=== PATIENT | female | born 1945 | race Caucasian/White ===

== ENCOUNTER 2020-07-09 07:03 | Day surgery (SDC) | payer MEDICARE ==
[2020-07-05 13:30] VITALS: BMI 21.9
[2020-07-09 10:02] VITALS: BP 111/67; TEMP 98.5
[2020-07-09] MEDS ORDERED: Iopamidol-M 300 61% 15 ML VIAL ONE (10:52)
== END 2020-07-09 10:30 | disposition home or self-care (01) ==
LOC: RAD 07:03
PROVIDERS: ATTEND Neurological Surgery
PROC: B02B1ZZ Computerized Tomography (CT Scan) of Spinal Cord using Low Osmolar Contrast (ICD-10-PCS; principal; 2020-07-09)
DX: M51.36 Other intervertebral disc degeneration, lumbar region (principal); M43.16 Spondylolisthesis, lumbar region; M47.812 Spondylosis without myelopathy or radiculopathy, cervical region; M43.12 Spondylolisthesis, cervical region; M50.321 Other cervical disc degeneration at C4-C5 level; M48.02 Spinal stenosis, cervical region; M19.90 Unspecified osteoarthritis, unspecified site; I10 Essential (primary) hypertension; I67.1 Cerebral aneurysm, nonruptured; Z79.899 Other long term (current) drug therapy; Z98.1 Arthrodesis status
CPT/HCPCS: 62305; 72050; 72100; 72126; 72132; Q9967

== ENCOUNTER 2021-05-02 12:56 | Outpatient (CLI) | payer MEDICARE | END 2021-05-02 12:57 | disposition home or self-care (01) | LOC: BICCT 12:56 | PROVIDERS: ATTEND Internal Medicine | DX: R91.8 Other nonspecific abnormal finding of lung field (principal); I77.810 Thoracic aortic ectasia | CPT/HCPCS: 71250 ==

== ENCOUNTER 2022-01-16 06:55 | Outpatient (CLI) | payer MEDICARE | END 2022-01-16 06:56 | disposition home or self-care (01) | LOC: BICULT 06:55 | PROVIDERS: ATTEND Internal Medicine | DX: E04.2 Nontoxic multinodular goiter (principal) | CPT/HCPCS: 76536 ==

== ENCOUNTER 2022-02-05 13:10 | Outpatient (CLI) | payer MEDICARE | END 2022-02-05 13:11 | disposition home or self-care (01) | LOC: BICRAD 13:10 | PROVIDERS: ATTEND Internal Medicine | DX: R05.9 Cough, unspecified (principal) | CPT/HCPCS: 71046 ==

== ENCOUNTER 2023-01-02 12:36 | Outpatient (CLI) | payer MEDICARE | END 2023-01-02 12:37 | disposition home or self-care (01) | LOC: CT 12:36 | PROVIDERS: ATTEND Internal Medicine | DX: R91.1 Solitary pulmonary nodule (principal); R91.8 Other nonspecific abnormal finding of lung field | CPT/HCPCS: 36415; 71250; 82607; 82747; 83735; 84207; 84484; 85014 ==

== ENCOUNTER 2023-06-04 07:31 | Outpatient (CLI) | payer MEDICARE ==
[2023-06-04] MEDS ORDERED: Iopamidol 370 76% 100 ML VIAL ONE (12:16)
== END 2023-06-04 07:32 | disposition home or self-care (01) ==
LOC: CT 07:31
PROVIDERS: ATTEND Physician Assistant Medical
DX: R19.7 Diarrhea, unspecified (principal); R10.13 Epigastric pain
CPT/HCPCS: 74177; Q9967

== ENCOUNTER 2023-08-25 12:54 | Outpatient (CLI) | payer MEDICARE | END 2023-08-25 12:55 | disposition home or self-care (01) | LOC: SCSMRI 12:54 | PROVIDERS: ATTEND Surgery | DX: M54.50 Low back pain, unspecified (principal); M54.2 Cervicalgia; M47.816 Spondylosis without myelopathy or radiculopathy, lumbar region; M47.817 Spondylosis without myelopathy or radiculopathy, lumbosacral region; M47.815 Spondylosis without myelopathy or radiculopathy, thoracolumbar region; M48.02 Spinal stenosis, cervical region; Z98.890 Other specified postprocedural states | CPT/HCPCS: 72050; 72110; 72141; 72148 ==

== ENCOUNTER 2024-01-20 12:17 | Outpatient (CLI) | payer MEDICARE | END 2024-01-20 12:18 | disposition home or self-care (01) | LOC: BICCT 12:17 | PROVIDERS: ATTEND Internal Medicine | DX: R91.1 Solitary pulmonary nodule (principal) | CPT/HCPCS: 71250 ==

== ENCOUNTER 2024-10-20 10:04 | Outpatient (CLI) | payer MEDICARE | END 2024-10-20 10:05 | disposition home or self-care (01) | LOC: BICCT 10:04 | PROVIDERS: ATTEND Internal Medicine | DX: R91.8 Other nonspecific abnormal finding of lung field (principal) | CPT/HCPCS: 71250 ==